=== PATIENT | male | born 2000 | race Caucasian/White ===

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

== ENCOUNTER → 2022-01-03 | Outpatient (CLI) | payer OTHER, MEDICAID | LOC: COL.RAD 15:37 | DX: M41.85 Other forms of scoliosis, thoracolumbar region (principal) ==

== ENCOUNTER 2022-10-30 13:00 | Outpatient (RCR) | payer OTHER | END 2022-11-03 | disposition home or self-care (01) | LOC: MKS.ESL.PT | DX: M54.50 Low back pain, unspecified (principal) ==

== ENCOUNTER 2022-11-22 10:15 | Outpatient (RCR) | payer OTHER | END 2022-12-03 | disposition home or self-care (01) | LOC: MKS.ESL.PT | DX: M54.50 Low back pain, unspecified (principal) ==

== ENCOUNTER 2023-08-26 02:42 | Emergency (ER) | payer SELFPAY ==
[~2023-08-26] VITALS: Ht 177.8 cm; Wt 72.7 kg
[2023-08-26 02:45] VITALS: BP 135/67; TEMP 98.1
[2023-08-26] MEDS ORDERED: Ibuprofen 400 MG TAB PO ONE (03:00)
[2023-08-26 03:46] VITALS: PULSE 74
== END 2023-08-26 03:46 | disposition home or self-care (01) ==
LOC: COL.ER 02:42
DX: S00.83XA Contusion of other part of head, initial encounter (principal); F17.210 Nicotine dependence, cigarettes, uncomplicated; Y04.2XXA Assault by strike against or bumped into by another person, initial encounter